=== PATIENT | female | born 1950 | race Caucasian/White ===

== ENCOUNTER → 2019-10-17 13:53 | Outpatient (BNVA) | payer BC, SELFPAY | PROVIDERS: Family Provider Family Medicine; PCP Nurse Practitioner Primary Care; Visit Provider Otolaryngology | DX: H60.01 Abscess of right external ear (principal); F17.210 Nicotine dependence, cigarettes, uncomplicated | CPT/HCPCS: 99213; 99214 ==

== ENCOUNTER → 2019-11-06 09:07 | Outpatient (BNVA) | payer BC, SELFPAY | PROVIDERS: Family Provider Nurse Practitioner Primary Care; PCP Nurse Practitioner Primary Care; Referring Provider Nurse Practitioner Primary Care; Visit Provider Otolaryngology | DX: L98.9 Disorder of the skin and subcutaneous tissue, unspecified (principal); F17.210 Nicotine dependence, cigarettes, uncomplicated | CPT/HCPCS: 99213; 99214 ==

== ENCOUNTER 2019-11-11 08:34 | Day surgery (SDC) | payer MEDICARE, BC, SELFPAY ==
[2019-11-11] VITALS (8 sets, daily range): BP systolic 113–155; BP diastolic 70–95; PULSE 53–60; RESP 12–18; TEMP 36.2–36.3; O2SAT 98–100; BMI 36.5
[2019-11-11] MEDS: sodium chloride 0.9% 1,000 ML 30 ML IV (09:08)
--- NOTE | 2019-11-11 09:10 | ANES.PREANES ---
Pre-Anesthetic Assessment Pre-Anesthetic Assessment: Height/Weight: Height 1.73 m Weight 108.862 kg Temp Pulse Resp BP Pulse Ox 97.1 F L 60 18 155/95 100 11/11/19 08:55 11/11/19 08:55 11/11/19 08:55 11/11/19 08:55 11/11/19 08:55 Preop Diagnosis: Ear lesion Proposed Procedure: Operation Date: 11/11/19 09:55 Proposed Procedures p Excision Ear Mass/Lesion(Right) - Clark Joyner MD Last intake: Intake Last Liquid Date 11/10/19 Last Liquid Time 23:00 Last Solid Date 11/10/19 Last Solid Time 23:00 Social: Social History: Tobacco Exam: Pre-Anes Outpt Exam: alert, oriented x 3, clear to auscultation bilaterally and regular rate & rhythm Airway: Submandibular: WNL Cervical ROM: WNL MP: 2 Dentition: Full History/ROS: No significant history except as noted Pulmonary: Pulmonary: GREEN CV/HEM: CV/HEM: Afib : : Chronic renal Insufficiency Hepatic: Hepatic: None reported GI: GI: None reported Metabolic: Metabolic: Hyperlipidemia and Morbid obesity Musc/skel: Musc/skel: Lower Back Pain and OA/DJD Neuropsych: Neuropsych: Anxiety and Depression Anesthetic Plan: ASA status: III Anesthesia: Anesthesia Evaluation and MAC Meds/Allergies Current Medications: Current Medications Generic Name Dose Route Start Last Admin Trade Name Freq PRN Reason Stop Dose Admin Sodium Chloride 1,000 mls @ 30 ml s/hr 11/11/19 08:45 11/11/19 09:08 Sodium Chloride 0.9% IV 11/12/19 08:44 30 mls/hr .Q24H ALONSO Administration PFSH Anesthesia PFSH: Surgical History (Updated 11/11/19 @ 09:11 by Yahir Lawton MD) History of appendectomy (Acute) History of bilateral oophorectomy (Acute) History of foot surgery (Acute) History of neck surgery (Acute) History of surgery on upper extremity (Acute) Social History Smoking and tobacco status: current every day smoker cigarettes Packs smoked per day: 1 Alcohol intake: never Data Anesthesia Cardiac Studies: No Data to Display
--- NOTE | 2019-11-11 09:43 | PM.HPUD ---
H&P update H&P Update: DATE OF SURGERY/PROCEDURE: 11/11/19 DATE H&P PERFORMED: 11/06/19 H&P UPDATE INFORMATION: H&P completed within last 30 days and No changes to prior documentation PLANNED PROCEDURE: Operation Date: 11/11/19 09:55 Proposed Procedures p Excision Ear Mass/Lesion(Right) - Clark Joyner MD Full H&P Medications/Allergies: Current Medications: Current Medications Generic Name Dose Route Start Last Admin Trade Name Freq PRN Reason Stop Dose Admin Sodium Chloride 1,000 mls @ 30 ml s/hr 11/11/19 08:45 11/11/19 09:08 Sodium Chloride 0.9% IV 11/12/19 08:44 30 mls/hr .Q24H ALONSO Administration Perinent History: Social History: Social History Smoking and tobacco status: current every day smoker cigarettes Packs smoked per day: 1 Alcohol intake: never
--- NOTE | 2019-11-11 11:49 | P.OP_ITS ---
Operative Report Date of procedure: 11/11/19 Pre-op Diagnosis: Ear lesion Post-op diagnosis: same Post-op Findings: Cyst right ear with involvement of tragus. Procedure Done: Excision cyst right tragus including cartilage muscle and underlying tissue. Surgeon: Clark Joyner Anesthesia: General Findings: Cyst right tragus Condition: stable Disposition: PACU Brief History: Cecilia is a 69-year-old female who developed a recurrent infectious process of the right tragus after piercing. Procedure: The patient was taken to the operating room and under satisfactory LMA anesthesia of the ear was prepped draped and injected. An excision was performed in a black skin tension line encompassing both the entrance and exit wound. A cystic lesion with a tract going through the tragus was encountered the and entire process was excised. Hemostasis was obtained with a bipolar cautery. The wound was closed with 5-0 fast-absorbing suture on both the entrance and exit side. The patient was allowed to awaken and taken to the recovery room where she was observed. During the observation. Postoperative care instructions and counseling including detailed written and verbal instruct ions were given to the patient when she verbalized understanding of all instructions and met discharge criteria she was discharged in satisfactory and stable condition.
[2019-11-11] MEDS: neomycin-poly-bacitracin oint 28 gm 1 APPLIC TOPICAL (12:04)
== END 2019-11-11 13:15 | disposition home or self-care (01) ==
PROVIDERS: Family Provider Nurse Practitioner Primary Care; PCP Nurse Practitioner Primary Care; Visit Provider Otolaryngology
PROC: (CPT 11440; principal; 2019-11-11 09:55)
DX: L72.8 Other follicular cysts of the skin and subcutaneous tissue (principal); F17.210 Nicotine dependence, cigarettes, uncomplicated; I48.91 Unspecified atrial fibrillation; E78.5 Hyperlipidemia, unspecified; E66.01 Morbid (severe) obesity due to excess calories; Z68.36 Body mass index [BMI] 36.0-36.9, adult; M19.90 Unspecified osteoarthritis, unspecified site
CPT/HCPCS: 11440; 12345; 88309; 96365; J2001; J2704; J7030

== ENCOUNTER → 2020-05-25 09:25 | Outpatient (BNVA) | payer BC, SELFPAY | PROVIDERS: Family Provider Nurse Practitioner Primary Care; PCP Nurse Practitioner Primary Care; Visit Provider Internal Medicine Rheumatology | DX: M32.9 Systemic lupus erythematosus, unspecified (principal); Z79.899 Other long term (current) drug therapy; Z11.59 Encounter for screening for other viral diseases; Z11.1 Encounter for screening for respiratory tuberculosis; R76.8 Other specified abnormal immunological findings in serum; N18.4 Chronic kidney disease, stage 4 (severe); M10.9 Gout, unspecified; I48.91 Unspecified atrial fibrillation; R60.0 Localized edema; G43.709 Chronic migraine without aura, not intractable, without status migrainosus; F17.210 Nicotine dependence, cigarettes, uncomplicated | CPT/HCPCS: 36415; 80076; 81001; 82306; 82565; 82570; 84156; 84550; 85025; 85651; 86140; 86160; 86431; 86480; 86704; 86803; 87340; 99204 ==

== ENCOUNTER → 2020-05-26 09:41 | Outpatient (BNVA) | payer BC, SELFPAY | PROVIDERS: Family Provider Nurse Practitioner Primary Care; PCP Nurse Practitioner Primary Care; Visit Provider Internal Medicine Rheumatology | DX: M19.90 Unspecified osteoarthritis, unspecified site (principal) | CPT/HCPCS: 71046; 73130; 73630; 80053 ==

== ENCOUNTER → 2020-06-10 09:33 | Outpatient (BNVA) | payer BC, SELFPAY | PROVIDERS: Family Provider Nurse Practitioner Primary Care; PCP Nurse Practitioner Primary Care; Visit Provider Internal Medicine Rheumatology | DX: N18.4 Chronic kidney disease, stage 4 (severe) (principal) | CPT/HCPCS: 80069; 82043; 85025 ==

== ENCOUNTER → 2020-06-24 14:41 | Outpatient (BNVA) | payer BC, SELFPAY | PROVIDERS: Family Provider Nurse Practitioner Primary Care; PCP Nurse Practitioner Primary Care; Visit Provider Internal Medicine Rheumatology | DX: N05.9 Unspecified nephritic syndrome with unspecified morphologic changes (principal); M75.52 Bursitis of left shoulder; R76.8 Other specified abnormal immunological findings in serum; G43.709 Chronic migraine without aura, not intractable, without status migrainosus; M10.9 Gout, unspecified; F17.210 Nicotine dependence, cigarettes, uncomplicated | CPT/HCPCS: 20610; 99214; J1030 ==

== ENCOUNTER → 2020-09-02 10:38 | Outpatient (BNVA) | payer MEDICARE, SELFPAY | PROVIDERS: PCP Family Medicine; Visit Provider Registered Nurse | DX: N18.9 Chronic kidney disease, unspecified (principal); N18.30 Chronic kidney disease, stage 3 unspecified | CPT/HCPCS: 80069; 82043; 82306; 82310; 83970; 85025 ==

== ENCOUNTER → 2021-02-01 10:08 | Outpatient (BNVA) | payer BC, MEDICAID, SELFPAY | PROVIDERS: PCP Family Medicine; Visit Provider Registered Nurse | DX: N18.4 Chronic kidney disease, stage 4 (severe) (principal) | CPT/HCPCS: 80069; 82043; 82306; 82310; 83970; 85025 ==

== ENCOUNTER → 2021-06-11 00:01 | Outpatient (BNVA) | payer BC, SELFPAY | PROVIDERS: PCP Family Medicine; Visit Provider Internal Medicine | DX: N18.4 Chronic kidney disease, stage 4 (severe) (principal) | CPT/HCPCS: 80069; 82306; 82310; 83970; 85025 ==

== ENCOUNTER → 2021-07-21 09:30 | Outpatient (BNVA) | payer MEDICARE, SELFPAY | PROVIDERS: PCP Family Medicine; Visit Provider Family Medicine | DX: R80.9 Proteinuria, unspecified (principal); F41.1 Generalized anxiety disorder; R60.0 Localized edema; I48.0 Paroxysmal atrial fibrillation; G43.709 Chronic migraine without aura, not intractable, without status migrainosus; M10.9 Gout, unspecified; M54.16 Radiculopathy, lumbar region; I10 Essential (primary) hypertension; J44.9 Chronic obstructive pulmonary disease, unspecified; N18.4 Chronic kidney disease, stage 4 (severe); M1A.30X0 Chronic gout due to renal impairment, unspecified site, without tophus (tophi) | CPT/HCPCS: 80053; 80061; 82570; 84156; 85025 ==

== ENCOUNTER → 2021-11-04 10:12 | Outpatient (BNVA) | payer MEDICARE, SELFPAY | PROVIDERS: PCP Family Medicine; Visit Provider Registered Nurse | DX: N18.4 Chronic kidney disease, stage 4 (severe) (principal) | CPT/HCPCS: 80069; 82310; 82570; 82652; 83970; 84156; 85025 ==

== ENCOUNTER → 2022-02-02 09:30 | Outpatient (BNVA) | payer MEDICARE, MEDICAID, SELFPAY | PROVIDERS: PCP Family Medicine; Visit Provider Emergency Medicine | DX: M25.552 Pain in left hip (principal); M25.562 Pain in left knee | CPT/HCPCS: 73502; 73562 ==

== ENCOUNTER → 2022-05-19 11:54 | Outpatient (BNVA) | payer MEDICARE, SELFPAY | PROVIDERS: PCP Family Medicine; Visit Provider Registered Nurse | DX: N18.4 Chronic kidney disease, stage 4 (severe) (principal) | CPT/HCPCS: 80069; 82310; 82570; 82652; 83970; 84156; 85025 ==

== ENCOUNTER → 2022-06-23 10:21 | Outpatient (BNVA) | payer MEDICARE, SELFPAY | PROVIDERS: PCP Family Medicine; Visit Provider Family Medicine | DX: M10.9 Gout, unspecified (principal); I48.0 Paroxysmal atrial fibrillation; E78.5 Hyperlipidemia, unspecified; F41.1 Generalized anxiety disorder; R60.0 Localized edema; M54.16 Radiculopathy, lumbar region; G43.709 Chronic migraine without aura, not intractable, without status migrainosus; J44.9 Chronic obstructive pulmonary disease, unspecified; E78.2 Mixed hyperlipidemia; I10 Essential (primary) hypertension; R76.8 Other specified abnormal immunological findings in serum; Z13.1 Encounter for screening for diabetes mellitus; R73.9 Hyperglycemia, unspecified; N18.4 Chronic kidney disease, stage 4 (severe); M32.9 Systemic lupus erythematosus, unspecified; F17.200 Nicotine dependence, unspecified, uncomplicated | CPT/HCPCS: 80053; 80061; 83036; 84443; 85651; 86038; 86140 ==

== ENCOUNTER → 2022-11-17 10:24 | Outpatient (BNVA) | payer MEDICARE, MEDICAID, SELFPAY | PROVIDERS: PCP Family Medicine; Visit Provider Family Medicine | DX: R11.0 Nausea (principal); N18.4 Chronic kidney disease, stage 4 (severe); M32.9 Systemic lupus erythematosus, unspecified; A09 Infectious gastroenteritis and colitis, unspecified; R53.83 Other fatigue; R79.89 Other specified abnormal findings of blood chemistry; G43.709 Chronic migraine without aura, not intractable, without status migrainosus | CPT/HCPCS: 80069; 81000; 82043; 82310; 82652; 83970; 85025; 85651; 86140; 87493; 87506 ==

== ENCOUNTER 2023-02-17 09:05 | Outpatient (CLI) | payer MEDICARE, MEDICAID, SELFPAY ==
--- NOTE | 2023-02-17 09:30 | USCV_ITS ---
Cecilia Jacobo Age: 73 Gender: F : 1950 Exam Date: 02/17/2023 09:37 Ordering Phys: Maribeth Cerna NP Technologist: CT Exam Location: [facility] Indication: chest pain BP: 116 / 64 HR: 64 Rhythm: Sinus Technical Quality: Adequate MEASUREMENTS (Male / Female) Normal Values 2D ECHO LV Diastolic Diameter PLAX 5.5 cm 4.2 - 5.9 / 3.9 - 5.3 cm LV Systolic Diameter PLAX 4.1 cm LV Chamber Size 4.0 cm IVS Diastolic Thickness 1.0 cm 0.6 - 1.0 / 0.6 - 0.9 cm IVS Systolic Thickness 1.2 cm LVPW Diastolic Thickness 1.0 cm 0.6 - 1.0 / 0.6 - 0.9 cm LVPW Systolic Thickness 1.5 cm RV Chamber Size 3.4 cm LVOT Diameter 2.1 cm LV Ejection Fraction 2D Teich 46.0 % LV Ejection Fraction MOD 2C 68.7 % LV Ejection Fraction 2C AL 69.4 % LA Diameter 3.7 cm LA Width 5.0 cm LA Height 5.8 cm RA Width 4.3 cm RA Height 4.5 cm Aorta at Sinotubular Diameter 2.2 cm IVC Diameter 1.3 cm M-MODE Aortic Annulus Diameter 3.0 cm LA Ao Ratio MM 1.4 MV E Point Septal Separation 0.5 cm DOPPLER AV Peak Velocity 175.0 cm/s LVOT Peak Velocity 117.0 cm/s AV Area Cont Eq vti 1.7 cm squared AV Area Cont Eq pk 2.2 cm squared MV Area PHT 3.9 cm squared Mitral E to A Ratio 2.2 MV E' Velocity 53.0 cm/s Mitral E to MV E' Ratio 8.6 Mitral E to LV E' Lateral Ratio 8.5 Mitral E to LV E' Septal Ratio 8.7 TR Peak Velocity 295.2 cm/s TR Peak Gradient 34.9 mmHg TR Mean Velocity 240.6 cm/s TR Mean Gradient 25.7 mmHg TR Velocity Time Integral 83.1 cm Right Atrial Pressure 3.0 mmHg Pulmonary Artery Systolic Pressu 37.9 mmHg PV Peak Velocity 76.0 cm/s FINDINGS Left Ventricle Normal left ventricular size, systolic function and wall thickness, with no regional wall motion abnormalities. Grade I/IV diastolic dysfunction (abnormal relaxation filling pattern), normal to mildly elevated filling pressures. Left ventricular ejection fraction is estimated at 60 %. Right Ventricle Normal right ventricular size and systolic function. Normal right ventricular systolic pressure. Right Atrium Mildly increased right atrial size. Left Atrium Moderately increased left atrial size. Mitral Valve Structurally normal mitral valve without significant stenosis or prolapse. There is no mitral regurgitation. Aortic Valve Structurally normal aortic valve without significant sclerosis or stenosis. There is no aortic regurgitation. Tricuspid Valve Structurally normal tricuspid valve. Trace to mild tricuspid valve regurgitation. Pulmonic Valve Structurally normal pulmonic valve. Pericardium Normal pericardium without effusion. Aorta Normal ascending aorta dimension. IVC The inferior vena cava appears normal. CONCLUSIONS Normal left ventricular size, systolic function and wall thickness, with no regional wall motion abnormalities. Grade I/IV diastolic dysfunction (abnormal relaxation filling pattern), normal to mildly elevated filling pressures. Left ventricular ejection fraction is estimated at 60 %. Mildly increased right atrial size. Moderately increased left atrial size. There are no prior echocardiogram studies to compare. Dr. Durga Mejias MD (Electronically Signed) Final Date: 17 Feb 2023 14:13 S
== END 2023-02-17 09:06 | disposition home or self-care (01) ==
LOC: RAD 09:08
PROVIDERS: PCP Family Medicine; Visit Provider Nurse Practitioner Family
DX: I10 Essential (primary) hypertension (principal); I48.91 Unspecified atrial fibrillation; R06.02 Shortness of breath; R60.0 Localized edema
CPT/HCPCS: 93306